=== PATIENT | male | born 1980 | race Caucasian/White ===

== ENCOUNTER 2019-03-16 13:38 | Emergency (ER) | payer OTHER ==
--- NOTE | 2019-03-16 13:55 | UC ---
Truncal Trauma HPI - HPI Summary HPI Summary: 38 yo male presents with LEFT chest wall pain. He tells me that earlier today at work he was pushing a door open that was jammed and felt something popped in his anterior left ribs. Had immediate pain that has persisted since. Pain is worse with movement and touching the area. He has not taken anything OTC for his discomfort. Denies SOB, palpitations, abdominal pain, n/v. - History Of Current Complaint Chief Complaint: UCChestPain Stated Complaint: CHEST PAIN Time Seen by Provider: 03/16/19 13:55 Hx Obtained From: Patient Severity Initially: Moderate Severity Currently: Moderate Pain Intensity: 7 Pain Scale Used: 0-10 Numeric - Allergies/Home Medications Allergies/Adverse Reactions: Allergies Allergy/AdvReac Type Severity Reaction Status Date / Time Penicillins Allergy Unknown Verified 03/16/19 13:47 Reaction Details Home Medications: Home Medications Acetaminophen [Acetaminophen Extra Strength] 500 mg PO ONCE 03/16/19 [History Confirmed 03/16/19] PMH/Surg Hx/FS Hx/Imm Hx - Additional Past Medical History Additional PMH: None - Surgical History Surgical History: Yes Surgery Procedure, Year, and Place: L femur L knee reconstruction - Family History Known Family History: Positive: Non-Contributory - Social History Occupation: Employed Full-time Lives: With Family Alcohol Use: None Substance Use Type: None Smoking Status (MU): Never Smoked Tobacco Review of Systems All Other Systems Reviewed And Are Negative: No Constitutional: Positive: Negative Skin: Positive: Negative Neurovascular: Positive: Negative Musculoskeletal: Positive: Other: - left chest wall pain Neurological: Positive: Negative Psychological: Positive: Negative Physical Exam - Summary Physical Exam Summary: GENERAL: NAD. WDWN. No pain distress. SKIN: No rashes, sores, lesions, or open wounds. NECK: Supple. Nontender. No lymphadenopathy. CHEST: CTAB. No r/r/w. No accessory muscle use. Breathing comfortably and in no distress. CV: RRR. Without m/r/g. Pulses intact. Cap refill <2seconds MSK: TTP overlying anterior intercoastal left ~5th rib. Pain worse with movement of left upper extremity and deep breaths. NEURO: Alert. PSYCH: Age appropriate behavior. Triage Information Reviewed: Yes Vital Signs: Initial Vital Signs Temp 97.6 F 03/16/19 13:49 Pulse 81 03/16/19 13:49 Resp 16 03/16/19 13:49 BP 124/79 03/16/19 13:49 Pulse Ox 96 03/16/19 13:49 Vital Signs Reviewed: Yes Diagnostics - Radiology ribs XR Radiology Interpretation Completed By: Radiologist Summary of Radiographic Findings: IMPRESSION: #. Negative exam. Truncal Trauma Course/Dx - Course Course Of Treatment: In the clinic, pt was given toradol for his discomfort and says that it helped significantly. Pain went from 9/10 to 6/10 and is more comfortable at rest. XR negative Suspect muscle strain. Advised to rest, apply ice/heat, and take ibuprofen as directed for discomfort - Differential Dx/Diagnosis Provider Diagnosis: Muscle strain Discharge ED - Sign-Out/Discharge Documenting (check all that apply): Patient Departure All imaging exams completed and their final reports reviewed: Yes - Discharge Plan Condition: Stable Disposition: HOME Patient Education Materials: Muscle Strain (DC) Referrals: No Primary Care Phys,NOPCP [Primary Care Provider] - Additional Instructions: If you develop a fever, shortness of breath, chest pain, new or worsening symptoms - please call your PCP or go to the ED immediately. May take tylenol/ibuprofen as directed for discomfort Apply ice today and heat starting tomorrow intermittently throughout the day - Billing Disposition and Condition Condition: STABLE Disposition: Home
[2019-03-16] MEDS ORDERED: Ketorolac *IM* INJ* 60 MG/2 ML VIAL IM ONE (14:00)
== END 2019-03-16 15:14 | disposition home or self-care (01) ==
LOC: UCEAST 13:38
DX: S29.011A Strain of muscle and tendon of front wall of thorax, initial encounter (principal); X50.9XXA Other and unspecified overexertion or strenuous movements or postures, initial encounter; Y92.9 Unspecified place or not applicable; Z88.0 Allergy status to penicillin
CPT/HCPCS: 99201; G0463; J1885

== ENCOUNTER 2019-05-22 09:46 | Emergency (ER) | payer OTHER ==
[2019-05-22 13:22] VITALS: BP 155/96
--- NOTE | 2019-05-22 14:08 | UC ---
Throat Pain/Nasal Karl HPI - HPI Summary HPI Summary: 39-year-old male comes in with a chief complaint of 2 weeks of upper respiratory tract sinusitis infection symptoms. Been having rhinorrhea sinus pressure.'s been using Afrin and Sudafed on a regular basis. It's not working as well as it used to be working. Now is sinuses are completely clot she's having a hard time breathing out of his nose. No chest congestion. No recent fevers. - History of Current Complaint Chief Complaint: UCRespiratory Stated Complaint: SINUS ISSUE Time Seen by Provider: 05/22/19 13:53 Pain Intensity: 4 - Allergies/Home Medications Allergies/Adverse Reactions: Allergies Allergy/AdvReac Type Severity Reaction Status Date / Time Penicillins Allergy Unknown Verified 05/22/19 13:19 Reaction Details Home Medications: Home Medications Oxymetazoline 0.05% NASAL SPR* [Afrin 0.05% NASAL SPRAY*] 4 spray INH DAILY PRN 05/22/19 [History Confirmed 05/22/19] guaiFENesin [Mucinex] 1 tab PO ONCE PRN 05/22/19 [History Confirmed 05/22/19] PMH/Surg Hx/FS Hx/Imm Hx Previously Healthy: Yes - Surgical History Surgical History: Yes Surgery Procedure, Year, and Place: L femur L knee reconstruction - Family History Known Family History: Positive: Non-Contributory - Social History Alcohol Use: Rare Substance Use Type: None Smoking Status (MU): Never Smoked Tobacco Review of Systems All Other Systems Reviewed And Are Negative: Yes Constitutional: Positive: Other - SEE HPI Skin: Positive: Negative Eyes: Positive: Negative ENT: Positive: Nasal Discharge, Sinus Congestion, Sinus Pain/Tenderness Respiratory: Positive: Negative Cardiovascular: Positive: Negative Gastrointestinal: Positive: Negative Motor: Positive: Negative Neurovascular: Positive: Negative Musculoskeletal: Positive: Negative Neurological: Positive: Negative Psychological: Positive: Negative Is Patient Immunocompromised?: No Physical Exam Triage Information Reviewed: Yes Appearance: No Pain Distress, Well-Nourished, Ill-Appearing - MILD Vital Signs: Initial Vital Signs Temp 97.7 F 05/22/19 13:16 Pulse 75 05/22/19 13:16 Resp 18 05/22/19 13:16 BP 155/96 05/22/19 13:16 Pulse Ox 96 05/22/19 13:16 Vital Signs Reviewed: Yes Eye Exam: Normal Eyes: Positive: Conjunctiva Clear ENT: Positive: Pharyngeal erythema, Nasal congestion, Nasal drainage, TMs normal , Sinus tenderness Neck: Positive: Supple Respiratory: Positive: Lungs clear, Normal breath sounds, No respiratory distress Cardiovascular: Positive: RRR Musculoskeletal: Positive: Strength Intact, ROM Intact Neurological: Positive: Alert, Muscle Tone Normal Psychological: Positive: Age Appropriate Behavior Skin Exam: Normal Throat Pain/Nasal Course/Dx - Course Course Of Treatment: I discussed with the patient to stop taking decongestants and Afrin. He should increase his oral water intake. Also increases exposure to steam in the shower or through a vaporizer. Get reevaluated if worse or any questions or concerns. - Differential Dx/Diagnosis Provider Diagnosis: Sinusitis Discharge ED - Sign-Out/Discharge Documenting (check all that apply): Patient Departure All imaging exams completed and their final reports reviewed: No Studies - Discharge Plan Condition: Stable Disposition: HOME Prescriptions: DOXYcycline CAP(*) [DOXYcycline 100MG CAP(*)] 100 mg PO BID #20 cap Fluticasone NASAL SPRAY 50MCG* [Flonase NASAL SPRAY 50MCG*] 2 spray BOTH NARES DAILY #1 btl Patient Education Materials: Sinusitis (ED) Referrals: [facility] [place] [facility]IAN REFERRAL [Outside] Additional Instructions: FOLLOW UP WITH YOUR DOCTOR IF NOT COMPLETELY IMPROVED. STOP TAKING AFRIN AND SUDAFED. INCREASE WATER INTAKE AND EXPOSURE TO STEAM. GET REEVALUATED SOONER IF NOT IMPROVED OR WORSE OR ANY QUESTIONS OR CONCERNS. - Billing Disposition and Condition Condition: STABLE Disposition: Home
== END 2019-05-22 14:15 | disposition home or self-care (01) ==
LOC: UCEAST 09:46
DX: J32.9 Chronic sinusitis, unspecified (principal); Z88.0 Allergy status to penicillin
CPT/HCPCS: 99212; G0463